=== PATIENT | female | born 1975 | race Caucasian/White ===

== ENCOUNTER 2017-07-10 08:00 | Emergency (ER) | payer MEDICAID ==
[~2017-07-10] VITALS: Ht 160 cm; Wt 59.0 kg
[~2017-07-10 08:00] MED LIST: AZIT-63 PO; CYCL-1 PO; DM/P295L17; GUAI1TBM19 PO; HYDR1TAB PO; IBUP-1984 PO; IBUP-1986 PO; PRED20TA PO; PSEU-259 PO
[2017-07-10] MEDS ORDERED: diazepam 5mg tablet PO ONE (09:25)
[2017-07-10] MEDS ORDERED: ketorolac tromethamine 15mg/ml inj. IM ONE (09:25)
[2017-07-10] MEDS ORDERED: METH-360 PO (09:30)
[2017-07-10 09:38] VITALS: BP 110/78
== END 2017-07-10 09:42 | disposition home or self-care (01) ==
LOC: ER 08:01
DX: M54.5 Low back pain (principal); G89.29 Other chronic pain; Z88.0 Allergy status to penicillin; Z91.013 Allergy to seafood; Z79.899 Other long term (current) drug therapy
CPT/HCPCS: 96372; 99283; J1885